=== PATIENT | female | born 1960 | race Two or more races ===

== ENCOUNTER 2025-01-22 14:40 | Emergency (ER) | payer OTHER, SELFPAY ==
[2025-01-22 14:43] VITALS: BP 113/57
[2025-01-22] MEDS: TYLENOL 650 MG PO (14:51)
[2025-01-22 15:24] LABS: COVID-19 Antigen Negative (Negative)
--- NOTE | 2025-01-22 18:17 | ED.GENMED ---
History of Present Illness
General
Chief Complaint: Cold/Flu/URI Symptoms
Source: patient
Exam Limitations: none
Time Seen by Provider: 01/22/25 18:12
History of Present Illness
History of Present Illness:
See MDM
Past History
Past History
ED Past Medical History: HTN and Other (obesity)
ED Past Surgical History:
Social History
Tobacco: Non-smoker
Phy Exam
Physical Exam
Physical Exam:
See MDM
Course
Orders/Labs/Results
Orders:
Orders
01/22/25 14:49
Acetaminophen [Tylenol] 650 mg PO NOW STA
01/22/25 14:55
COVID-19 Antigen Urgent
Source: Nasal Swab
Influenza A+B Rapid Molecular Urgent
MARTA Source: Nasal Swab
Specimen Description:
01/22/25 18:16
0.9% Sodium Chloride 1000 ml [Nss] 1,000 ml IV BOLUS
Dexamethasone Sod Phosphate [Decadron] 10 mg IV NOW STA
Ipratropium/Albuterol Sulfate [Duoneb] 3 ml INH R NOW STA
CR Chest Portable - 1 View Urgent
Comment:
Reason For Exam: cough, sob
Reason Study Needs to be Portable: Patient Unstable
01/22/25 18:17
Electrocardiogram (*1) Urgent
Reason for Study: Shortness of Breath
EKG- Treatment ONCE
01/22/25 18:44
Complete Blood Count/With Diff Urgent
Comprehensive Metabolic Panel Urgent
01/22/25 19:10
NT-proBNP Urgent
Troponin I Urgent
01/22/25 20:21
Amoxicillin 875 mg/Clav 125 mg [Augmentin 875 mg/125 mg] 1 tablet PO NOW STA
Doxycycline [Vibramycin] 100 mg PO NOW STA
Abnormal Lab Results
01/22/25
18:44
MCHC 32.6 L g/dL
(33.0-37.0)
RDW 14.8 H %
(11.5-14.5)
MPV 10.7 H fL
(7.4-10.4)
Glucose 153 H mg/dl
(70-99)
Calcium 8.3 L mg/dl
(8.4-10.2)
AST 44 H U/L
(14-36)
01/22/25 18:44
01/22/25 18:44
Vital Signs
Initial and Last Documented VS:
Initial Vital Signs
Temp Pulse Resp BP Pulse Ox
100.9 F H 86 20 113/57 92
01/22/25 14:43 01/22/25 14:43 01/22/25 14:43 01/22/25 14:43 01/22/25 14:43
Last Documented Vital Signs
Temp Pulse Resp BP Pulse Ox
99.8 F 80 20 119/84 93
01/22/25 19:05 01/22/25 19:26 01/22/25 19:26 01/22/25 19:05 01/22/25 19:26
MDM/Problems Addressed
Differential Diagnosis Includes:
Note:
CHIEF COMPLAINT(S)
Flu-like symptoms with positive flu test.
HISTORY OF PRESENT ILLNESS
The patient is a 64-year-old female who presented with flu-like symptoms which tested positive for influenza. Symptoms began approximately one week ago following her return from traveling to the [facility]. The patient initially started feeling
down and has experienced generalized malaise and weakness since then. In the past three days, she has developed significant weakness, difficulty in rising and completing routine activities, which is atypical for her despite having had similar cold
symptoms in the past. She is also experiencing a persistent cough but lacks the strength she normally possesses.
PHYSICAL EXAM
General: Weak and fatigued
Skin: Warm, dry.
Head: Normocephalic, atraumatic
Neck: Appears supple, trachea midline.
Eyes, Ears, Nose, Mouth, and Throat: Oral mucosa moist.
Cardiovascular: No signs of cyanosis. Regular rate and rhythm
Respiratory: Respirations are non-labored. Mild expiratory wheeze to bases
Abdomen: Non-distended
Musculoskeletal: No deformities
Neurological: No focal neurological deficit observed.
Psychiatric: Cooperative, appropriate mood and affect.
PLAN
- Administration of a breathing treatment.
- Initiation of corticosteroids.
- Order a chest X-ray to rule out complications beyond influenza.
- Comprehensive treatment focused on alleviating bronchitis symptoms.
- Evaluate for discharge once symptoms are managed and the patient feels more comfortable.
DIFFERENTIAL DIAGNOSIS
The Differential Diagnosis includes, in no particular order and is not limited to:
1. Influenza
2. Viral bronchitis
3. Pneumonia
4. Pulmonary embolism
5. Chronic Obstructive Pulmonary Disease exacerbation
6. Congestive heart failure
7. Myocarditis
8. Acute exacerbation of asthma
9. Dehydration secondary to viral illness
10. Anemia
SUMMARY OF ENCOUNTER
The patient, a 64-year-old female, presented with flu-like symptoms and tested positive for influenza. During evaluation, concerns for possible right perihilar pneumonia were raised. Initially, there was a concern for potential heart failure, but
the BNP was found to be within normal limits, suggesting no issue in that regard. The patients condition improved following treatment, and she reported feeling significantly better.
DISPOSITION
The patient and her daughter expressed comfort with her going home as her condition improved considerably, and she did not require supplemental oxygen.
PLAN
The plan is to manage the patient with antibiotics. She will be started on amoxicillin-clavulanate (Augmentin) and doxycycline to address her symptoms.
MEDICAL DECISION MAKING
-Complexity of Data Reviewed: Chronic conditions affecting care such as flu infection, respiratory complications. Differential diagnosis consideration included: Influenza, Viral bronchitis, Pneumonia, Pulmonary embolism, Chronic Obstructive
Pulmonary Disease exacerbation, Congestive heart failure, Myocarditis, Acute exacerbation of asthma, Dehydration secondary to viral illness, Anemia.
-Data:
Category 1
A review of BNP levels showed they were within normal limits which influenced the management decision away from cardiac failure concerns.
-Risk:
Prescription medication was prescribed to manage the suspected infection. Further escalation of care was considered but was not deemed necessary as the patients condition improved with treatment.
DIAGNOSIS
1. Influenza (ICD-10: J11.1)
2. Pneumonia, organism unspecified (ICD-10: J18.9)
*Pulse Oximetry
SaO2: 92
Oxygen Mode of Delivery: Room air
Patient hypoxic: no
*EKG
Interpreted by ED Provider?: Yes
Interpretation: normal (Normal sinus rhythm at 79 bpm, normal axis, no ST elevation)
*Critical Care Note
Total Time (30-74mins, 75-104mins- exclusive of procedures): Not Applicable
ED Attending Note
-
Portions of this chart may have been created with voice recognition software.� Occasional wrong word or��sound alike� substitutions may have occurred due to the inherent limitations of voice recognition software.
Discharge Plan
Departure
Patient Disposition: Home (Routine Discharge)
Date of Disposition: 01/22/25
Time of Disposition: 20:22
Patient with high blood pressure during this ER visit?: No
Discharge Problem:
PNA (pneumonia), Influenza
Instructions: Pneumonia in adults - ED (DC), Flu in adults - ED (DC)
Prescriptions:
New
doxycycline hyclate 100 mg capsule
100 mg PO BID Qty: 14 0RF
amoxicillin-pot clavulanate 875-125 mg tablet
1 tab PO BID Qty: 14 0RF
albuterol sulfate 90 mcg/actuation HFA aerosol inhaler
2 puff inhalation Q6H PRN (Reason: shortness of breath or wheezing) Qty: 8.5 0RF
Referrals:
Chi Castellanos MD [Family Provider]
Activity Restrictions/Additional Instructions:
Please return for any worsening symptoms.
You may return at any time if you have further concerns.
Please follow up with your doctor at the first available appointment, preferably this week.
Thank you for choosing [facility].
Interventions
Interventions:
*Risk Screen - Suicide Last Done: 01/22/25 19:05
*General Assessment Last Done: 01/22/25 19:05
*Neglect/Abuse Screening Last Done: 01/22/25 19:05
*ED- Fall Risk Assessment Last Done: 01/22/25 20:53
*ED COVID-19 Vaccine History Last Done: 01/22/25 20:53
*Nursing Disposition Last Done: 01/22/25 20:53
ED- Pulmonary Assessment Last Done: 01/22/25 19:05
Discharge Date and Time
Discharge Date/Time: 01/22/25 20:54
Print Language: ICELANDIC
[2025-01-22] MEDS: DUONEB 3 ML INH (18:46)
[2025-01-22] MEDS: DECADRON 10 MG IV (18:48)
[2025-01-22] MEDS: NSS 1000 IV (18:51)
[2025-01-22 19:04] LABS: Hematocrit 42.6 % (37.0-47.0); Hemoglobin 13.9 g/dL (12.0-16.0); Mean Corp Hgb Conc. 32.6 g/dL (33.0-37.0); Mean Corpuscular Volume 85.0 fL (81.0-99.0); Nucleated Red Blood Cells % 0 %; Platelet Count 135 10^3/uL (130-400); Red Cell Dist. Width 14.8 % (11.5-14.5)
[2025-01-22 19:05] VITALS: BP 119/84
[2025-01-22 19:16] LABS: ALT (SGPT) 29 U/L (0-35); AST (SGOT) 44 U/L (14-36); Albumin 4.1 g/dl (3.5-5.0); Alkaline Phosphatase 55 U/L (38-126); Blood Urea Nitrogen 14 mg/dl (7-17); Calcium 8.3 mg/dl (8.4-10.2); Carbon Dioxide 23 mmol/L (22-30); Chloride 107 mmol/L (98-107); Glucose 153 mg/dl (70-99); Potassium 4.6 mmol/L (3.5-5.1); Sodium 138 mmol/L (135-145); Total Protein 7.4 g/dl (6.3-8.2); eGFR > 60.00
[2025-01-22 19:25] VITALS: BMI 40.4
[2025-01-22 19:51] LABS: Troponin I 0.019 ng/ml
[2025-01-22] MEDS: VIBRAMYCIN 100 MG PO (20:30)
[2025-01-22] MEDS: AUGMENTIN 875 MG/125 MG 1 TABLET PO (20:30)
== END 2025-01-22 20:54 | disposition home or self-care (01) ==
LOC: EMR 14:40
PROVIDERS: Emergency Medicine; EMERGENCY PHYSICIAN Student in an Organized Health Care Education/Training Program; FAMILY PHYSICIAN Internal Medicine
DX: J11.00 Influenza due to unidentified influenza virus with unspecified type of pneumonia (principal); I10 Essential (primary) hypertension; E66.9 Obesity, unspecified
CPT/HCPCS: 99283; 94640; 96374; 96361; 71045; 80053; 83880; 84484; 85025; 87502; 87811; 93005

== ENCOUNTER 2025-01-26 18:39 | Emergency (ER) | payer OTHER, SELFPAY ==
[2025-01-26 18:42] VITALS: BP 127/72
[2025-01-26 20:20] VITALS: BMI 38.8
--- NOTE | 2025-01-26 20:20 | ED.GENMED ---
History of Present Illness
General
Chief Complaint: Breathing Problem
Source: patient, records and family
Exam Limitations: none
Time Seen by Provider: 01/26/25 20:08
History of Present Illness
History of Present Illness:
64yoF with a history of hypertension, hyperlipidemia, and obesity presenting with her daughter for evaluation of shortness of breath. Patient was seen in the ED 4 days ago for URI symptoms. Symptoms initially began about a week ago while she was
traveling in [place]. She tested positive for influenza A at her last ED visit. Chest x-ray showed possible mild pneumonia vs. atelectasis and she was started on Augmentin and doxycycline. Patient is presenting with ongoing symptoms and dyspnea.
She is having intermittent fevers and decreased appetite. No chest pain. She was seen at urgent care earlier today and retested for COVID/flu which both came back negative.
Past History
Past History
ED Past Medical History: HTN and Other (obesity)
ED Past Surgical History:
Social History
Tobacco: Non-smoker
Phy Exam
General Physical Exam
General Presentation: well appearing and no apparent distress
General Skin: warm and dry
General Habitus: normal
General Mental: alert
ENT Exam
ENT Exam: normocephalic
Cardiovascular Exam
Cardiovascular Exam: regular rate/rhythm and no murmur
Pulmonary Exam
Pulmonary Exam: no respiratory distress, no rales, no stridor and other (Scattered expiratory wheezes. Speaking in full sentences without difficulty.)
Neurological Exam
Neurological Exam: alert
Roberto Carlos Coma Scale
Eye Opening: Spontaneous
Verbal Response: Oriented
Motor Response: Obeys Commands
GCS Total Score: 15
Skin Exam
Skin Exam: normal color and warm/dry
Psychiatric Exam
Psychiatric Exam: normal mood/affect
Scores
Heart Failure Risk
Heart Failure Risk Score: Not Applicable
Course
Orders/Labs/Results
Orders:
Orders
01/26/25 18:48
Chest [CR Chest - 2 Views ] Urgent
Comment:
Reason For Exam: cough and sob
01/26/25 20:18
Electrocardiogram (*1) Urgent
Reason for Study: Shortness of Breath
CT Chest PE Study Urgent
Comment:
Reason For Exam: SOB, recent travel
EKG- Treatment ONCE
01/26/25 20:35
Complete Blood Count/With Diff Urgent
Troponin I Urgent
01/26/25 21:20
Comprehensive Metabolic Panel Urgent
01/26/25 23:19
Dexamethasone Sod Phosphate [Decadron] 10 mg IV NOW STA
Abnormal Lab Results
01/26/25 01/26/25
20:35 21:20
MCHC 32.5 L g/dL
(33.0-37.0)
RDW 14.6 H %
(11.5-14.5)
Abs Immat Gran (auto) 0.1 H 10^3/uL
(0-0.05)
Immature Gran % 0.9 H %
(0-0.5)
Monocytes % 9.6 H %
(1.7-9.3)
Chloride 108 H mmol/L
(98-107)
BUN 18 H mg/dl
(7-17)
Glucose 140 H mg/dl
(70-99)
Albumin 3.3 L g/dl
(3.5-5.0)
01/26/25 20:35
01/26/25 21:20
Vital Signs
Initial and Last Documented VS:
Initial Vital Signs
Temp Pulse Resp BP Pulse Ox
98.4 F 85 22 127/72 96
01/26/25 18:42 01/26/25 18:42 01/26/25 18:42 01/26/25 18:42 01/26/25 18:42
Last Documented Vital Signs
Temp Pulse Resp BP Pulse Ox
98.4 F 68 20 158/144 98
01/26/25 18:42 01/26/25 23:00 01/26/25 23:00 01/26/25 23:00 01/26/25 23:37
MDM/Problems Addressed
Differential Diagnosis Includes:
64yoF here with ongoing flu symptoms and SOB since her last ED visit 4 days ago. Currently on antibiotics for pneumonia. VSS and oxygen saturation 96% on room air. Scattered expiratory wheezes on lung exam. No signs of respiratory distress.
Differential diagnosis includes but is not limited to: Influenza, pneumonia, bronchospasm, consider PE given recent travel, less likely ACS
Initial ED plan: Chest x-ray obtained in triage which is overall unremarkable per my interpretation. Will check cardiac labs, EKG, and CTA chest.
*Pulse Oximetry
SaO2: 96
Oxygen Mode of Delivery: Room air
Patient hypoxic: no (96%)
*EKG
Interpreted by ED Provider?: Yes
EKG Intrepretation Date: 01/26/25
Heart Rate: 76
Rate: normal
Rhythm: sinus
[place]: normal axis
Interval: normal interval
QRS Pattern: normal QRS
Ischemia: no ischemia
*Critical Care Note
Total Time (30-74mins, 75-104mins- exclusive of procedures): Not Applicable
Update Note
Update Note:
Labs unremarkable including normal white count and renal function. EKG shows normal sinus rhythm without ischemic changes and troponin normal. CT is negative for pulmonary embolism and mild opacities noted which likely represent mild interstitial
type pneumonitis. Infiltrates appear improved compared to chest x-ray 4 days ago. No episodes of hypoxia throughout ED stay. No indication for hospitalization. Dose of Decadron given for wheezing and refill for albuterol provided. Advised close
follow-up with PCP and ED return precautions reviewed. Patient and daughter in agreement with plan and she was discharged stable condition.
ED Attending Note
-
Portions of this chart may have been created with voice recognition software.� Occasional wrong word or��sound alike� substitutions may have occurred due to the inherent limitations of voice recognition software.
Discharge Plan
Departure
Patient Disposition: Home (Routine Discharge)
Date of Disposition: 01/26/25
Time of Disposition: 23:19
Patient with high blood pressure during this ER visit?: Yes
Discharge Problem:
Influenza A, Bronchospasm
Instructions: Wheezing in adults - ED (DC)
Prescriptions:
New
albuterol sulfate [Ventolin HFA] 90 mcg/actuation HFA aerosol inhaler
2 puff inhalation Q6H PRN (Reason: shortness of breath or wheezing) Qty: 8.5 0RF
No Action
doxycycline hyclate 100 mg capsule
100 mg PO BID Qty: 14 0RF
amoxicillin-pot clavulanate 875-125 mg tablet
1 tab PO BID Qty: 14 0RF
albuterol sulfate 90 mcg/actuation HFA aerosol inhaler
2 puff inhalation Q6H PRN (Reason: shortness of breath or wheezing) Qty: 8.5 0RF
Referrals:
Chi Castellanos MD [Family Provider]
Activity Restrictions/Additional Instructions:
Continue taking antibiotics. Use inhaler as needed for wheezing. Use honey and humidifier for cough.
Please follow-up with your family doctor in the next 48 hours. Return to the ER with any new or worsening symptoms.
Interventions
Interventions:
*Risk Screen - Suicide Last Done: 01/26/25 18:42
*General Assessment Last Done: 01/26/25 20:21
*Neglect/Abuse Screening Last Done: 01/26/25 18:42
*ED- Fall Risk Assessment Last Done: 01/26/25 20:21
*ED COVID-19 Vaccine History Last Done: 01/26/25 20:21
*Nursing Disposition Last Done: 01/26/25 23:37
ED- Cardiac Assessment Last Done: 01/26/25 20:25
ED- Pulmonary Assessment Last Done: 01/26/25 20:25
Discharge Date and Time
Discharge Date/Time: 01/26/25 23:38
Print Language: IRISH
[2025-01-26 20:25] VITALS: BP 102/74
[2025-01-26 20:44] LABS: Hematocrit 40.9 % (37.0-47.0); Hemoglobin 13.3 g/dL (12.0-16.0); Mean Corp Hgb Conc. 32.5 g/dL (33.0-37.0); Mean Corpuscular Volume 84.2 fL (81.0-99.0); Nucleated Red Blood Cells % 0 %; Platelet Count 191 10^3/uL (130-400); Red Cell Dist. Width 14.6 % (11.5-14.5)
[2025-01-26 21:00] VITALS: BP 144/89
[2025-01-26 21:15] LABS: Troponin I 0.014 ng/ml
[2025-01-26 22:00] VITALS: BP 156/107
[2025-01-26 22:00] LABS: ALT (SGPT) 33 U/L (0-35); AST (SGOT) 27 U/L (14-36); Albumin 3.3 g/dl (3.5-5.0); Alkaline Phosphatase 60 U/L (38-126); Blood Urea Nitrogen 18 mg/dl (7-17); Calcium 8.7 mg/dl (8.4-10.2); Carbon Dioxide 27 mmol/L (22-30); Chloride 108 mmol/L (98-107); Estimated Creatinine Clearance 78 ml/min; Glucose 140 mg/dl (70-99); Potassium 4.0 mmol/L (3.5-5.1); Sodium 138 mmol/L (135-145); Total Protein 6.3 g/dl (6.3-8.2); eGFR > 60.00
[2025-01-26 22:25] VITALS: BP 166/79
[2025-01-26 23:00] VITALS: BP 158/144
[2025-01-26] MEDS: DECADRON 10 MG IV (23:22)
== END 2025-01-26 23:38 | disposition home or self-care (01) ==
LOC: EMR 18:39
PROVIDERS: Emergency Medicine; Physician Assistant; EMERGENCY PHYSICIAN Student in an Organized Health Care Education/Training Program; FAMILY PHYSICIAN Internal Medicine
DX: J10.00 Influenza due to other identified influenza virus with unspecified type of pneumonia (principal); J98.01 Acute bronchospasm; I10 Essential (primary) hypertension; E78.5 Hyperlipidemia, unspecified
CPT/HCPCS: 99285; 71046; 71275; 80053; 84484; 85025; 93005; Q9967